=== PATIENT | female | born 1970 | race Two or more races ===

== ENCOUNTER 2017-01-14 12:38 | Emergency (ER) | payer MEDICAID, OTHER ==
[~2017-01-14] VITALS: Ht 162.6 cm; Wt 59.0 kg
--- NOTE | 2017-01-14 13:24 | Emergency Room Report ---
History of Present Illness General Chief Complaint: Behavioral Complaint Source: Patient (SOHAIL BARTON D.O.) Present Illness HPI Patient presents with complaints of suicidal ideations she states that she hears voices telling her to kill her self Denies any trauma patient reports that she has multiple diagnoses including severe depression, paranoia, schizophrenia Patient does not know her medications Reports taking her medication yesterday and does not have any with her otherwise Patient reports medications do not help She states that she been to multiple psychiatric facilities Last one was approximately 2 months ago (SOHAIL BARTON D.O.) Allergies: Coded Allergies: No Known Allergies (Unverified , 01/14/17) Patient History Past Medical History: see triage record Pertinent Family History: none Now: No Reviewed Nursing Documentation: PMH: Agreed, PSxH: Agreed (SOHAIL BARTON D.O.) Nursing Documentation-PMH Hx Cardiac Problems: No Hx Hypertension: No Hx Pacemaker: No Hx Asthma: No Hx COPD: No Hx Diabetes: No Hx Cancer: No Hx Gastrointestinal Problems: No Hx Dialysis: No History Of Psychiatric Problem: Yes - schizo,bi-polar Hx Neurological Problems: No Hx Cerebrovascular Accident: No Hx Seizures: No (SOHAIL BARTON D.O.) Review of Systems All Other Systems: negative except mentioned in HPI (SOHAIL BARTON D.O.) Physical Exam Vital Signs Date Time Temp Pulse Resp B/P Pulse Ox O2 Delivery O2 Flow Rate FiO2 01/14/17 12:33 98.1 98 16 130/80 99 Room Air Sp02 EP Interpretation: reviewed, normal General Appearance: no apparent distress - However mildly disheveled Head: normocephalic, atraumatic Eyes: bilateral eye EOMI, bilateral eye PERRL ENT: hearing grossly normal, normal pharynx, TMs + canals normal, uvula midline Neck: full range of motion, supple, no meningismus, no bony tend Respiratory: lungs clear, normal breath sounds, no rhonchi, no respiratory distress, no retraction, no accessory muscle use Cardiovascular #1: normal peripheral pulses, regular rate, rhythm, no edema, no gallop, no JVD, no murmur Gastrointestinal: normal bowel sounds, non tender, soft, no mass, no organomegaly, non-distended, no guarding, no hernia, no pulsatile mass, no rebound Genitourinary: no CVA tenderness Musculoskeletal: back normal Neurologic: oriented x3, responsive, thermal engineer III-XII nml as tested, motor strength/ tone normal, sensory intact Psychiatric: other - Reports auditory hallucinations, reports sensation of wanting to hurt herself Skin: no rash - however mildly disheveled, warm/dry, palpation normal Lymphatic: normal inspection, no adenopathy (SOHAIL BARTON D.O.) Medical Decision Making Diagnostic Impression: Primary Impression: Substance abuse Additional Impression: Depression Qualified Codes: F32.9 - Major depressive disorder, single episode, unspecified ER Course Patient was further medically cleared and at this time having psychiatric evaluation Please refer to Dr. blanco dictation for the note at this time she has psychiatrically cleared the patient as well does not feel the patient has a harm to herself patient was provided with outpatient resource at this time stable for discharge Labs Test 01/14/17 13:22 01/14/17 13:41 White Blood Count 10.0 K/UL (4.8-10.8) Red Blood Count 4.46 M/UL (4.20-5.40) Hemoglobin 14.7 G/DL (12.0-16.0) Hematocrit 41.2 % (37.0-47.0) Mean Corpuscular Volume 93 FL (80-99) Mean Corpuscular Hemoglobin 33.1 PG (27.0-31.0) Mean Corpuscular Hemoglobin Concent 35.7 G/DL (32.0-36.0) Red Cell Distribution Width 11.0 % (11.6-14.8) Platelet Count 430 K/UL (150-450) Mean Platelet Volume 6.3 FL (6.5-10.1) Neutrophils (%) (Auto) 54.7 % (45.0-75.0) Lymphocytes (%) (Auto) 32.6 % (20.0-45.0) Monocytes (%) (Auto) 8.2 % (1.0-10.0) Eosinophils (%) (Auto) 3.0 % (0.0-3.0) Basophils (%) (Auto) 1.5 % (0.0-2.0) Sodium Level 138 mEQ/L (135-145) Potassium Level 2.9 mEQ/L (3.4-4.9) Chloride Level 96 mEQ/L (98-107) Carbon Dioxide Level 20 mEQ/L (20-30) Anion Gap 22 (5-15) Blood Urea Nitrogen 6 mg/dL (7-23) Creatinine 0.8 mg/dL (0.5-0.9) Estimat Glomerular Filtration Rate > 60 mL/min (>60) Glucose Level 128 mg/dL (74-106) Calcium Level 9.8 mg/dL (8.6-10.2) Total Bilirubin 0.8 mg/dL (0.0-1.2) Aspartate Amino Transf (AST/SGOT) 55 U/L (5-40) Alanine Aminotransferase (ALT/SGPT) 37 U/L (3-33) Alkaline Phosphatase 96 U/L (35-104) Total Protein 8.2 g/dL (6.6-8.7) Albumin 4.6 g/dL (3.5-5.2) Globulin 3.6 g/dL Albumin/Globulin Ratio 1.2 (1.0-2.7) Salicylates Level < 1 mg/dL (10-30) Acetaminophen Level < 10 ug/mL (10-30) Serum Alcohol 18 mg/dL Urine HCG, Qualitative Negative Urine Opiates Screen Negative (NEGATIVE) Urine Barbiturates Screen Negative (NEGATIVE) Phencyclidine (PCP) Screen Negative (NEGATIVE) Urine Amphetamines Screen Positive (NEGATIVE) Urine Benzodiazepines Screen Negative (NEGATIVE) Urine Cocaine Screen Negative (NEGATIVE) Urine Marijuana (THC) Screen Positive (NEGATIVE) (SOHAIL BARTON.Cristina) ER Course The patient was evaluated by Dr. Grover. The patient voices suicidal ideation but thought he feels the patient is not suicidal at this time. The patient states that it she will seek help. I discussed the date 12-step program and Odalys Mancia could provide the patient. The patient is stable for outpatient observation and treatment. (James Easley M.D.) Last Vital Signs Date Time Temp Pulse Resp B/P Pulse Ox O2 Delivery O2 Flow Rate FiO2 01/14/17 12:33 98.1 98 16 130/80 99 Room Air Status: improved (SOHAIL BARTON.OJanet) Last Vital Signs Date Time Temp Pulse Resp B/P Pulse Ox O2 Delivery O2 Flow Rate FiO2 01/14/17 12:33 98.1 98 16 130/80 99 Room Air Status: improved (James Easley M.D.) Disposition: HOME, SELF-CARE Condition: Improved Additional Instructions: Patient is provided with the discharge instructions notified to follow up with primary doctor in the next 2-3 days otherwise return to the er with any worsening symptoms. Please note that this report is being documented using [employer] technology. This can lead to erroneous entry secondary to incorrect interpretation by the dictating instrument. SOHAIL BARTON D.O. Jan 14, 2017 13:24 James Easley M.D. Jan 14, 2017 15:11
[2017-01-14 13:39] LABS: BASOPHILS % (AUTO) 1.5 % (0.0-2.0); LYMPHOCYTES % (AUTO) 32.6 % (20.0-45.0); MEAN CORPUSCULAR HEMOGLOBIN 33.1 PG (27.0-31.0); MEAN CORPUSCULAR HGB CONC 35.7 G/DL (32.0-36.0); MEAN CORPUSCULAR VOLUME 93 FL (80-99); MEAN PLATELET VOLUME 6.3 FL (6.5-10.1); MONOCYTES % (AUTO) 8.2 % (1.0-10.0); NEUTROPHILS % (AUTO) 54.7 % (45.0-75.0); PLATELET COUNT 430 K/UL (150-450); RED BLOOD COUNT 4.46 M/UL (4.20-5.40)
[2017-01-14 13:47] LABS: ACETAMINOPHEN < 10 ug/mL (10-30); ALANINE AMINOTRANSFERASE 37 U/L (3-33); ALBUMIN/GLOBULIN RATIO 1.2 (1.0-2.7); ALCOHOL 18 mg/dL; ANION GAP 22 (5-15); ASPARTATE AMINO TRANSFERASE 55 U/L (5-40); CALCIUM 9.8 mg/dL (8.6-10.2); CARBON DIOXIDE 20 mEQ/L (20-30); CHLORIDE 96 mEQ/L (98-107); CREATININE 0.8 mg/dL (0.5-0.9); GLOMERULAR FILTRATION RATE > 60 mL/min (>60); HEMOLYSIS 7; POTASSIUM 2.9 mEQ/L (3.4-4.9); SODIUM 138 mEQ/L (135-145); TOTAL PROTEIN 8.2 g/dL (6.6-8.7)
[2017-01-14 15:45] VITALS: BP 130/80
--- NOTE | 2017-01-15 03:08 | Consultation ---
DATE OF CONSULTATION: HISTORY: The patient is a 46-year-old female with mixed racial, who has been admitted to the hospital and complaining of suicidal ideation with hearing voices. During the evaluation, the patient was irritable, angry, when I asked in regards to suicidal ideation, elaborate on that. She stated "you are doctor and you need to figure it out ". When I ask her about medication, the patient replied in the records you should be having access to it. When I asked her when was her last hospitalization or who is her psychiatrist, the patient became very angry and stated this evaluated is talking to her, she is a drug addict, which she is "crazy". She was unable to provide any symptoms when I asked her what symptoms she is having beside hearing voices and having suicidal thoughts. She stated that she is on relief and she is receiving $200 per month and currently she is homeless and she does not have any place to go. The patient during the evaluation was eating salamis, cheese and bread. She also has significant amount of food under her pillow and she endorsed a future oriented thought process. She also was asking about placement after discharge. PAST PSYCHIATRIC HISTORY: She was not able to provide any past psychiatric history or what hospitalization she has been. She stated that she has had several psychiatric visits. She denied any suicidal attempt in the past. PAST MEDICAL HISTORY: None known. ALLERGIES: No known drug allergies. SUBSTANCE ABUSE HISTORY: She denied any history of drug use, however, stated that she has been using alcohol. However, her urine toxicology came back positive for amphetamines as well as marijuana. MENTAL STATUS EXAMINATION: The patient is alert and oriented x4. Mood was irritable and angry. Affect was , congruent with mood and appropriate. Thought process was linear and goal oriented. Thought content, positive for suicidal ideation. No homicidal ideation. No delusions. The patient did not endorse any auditory hallucinations at the time of evaluations. ASSESSMENT: AXIS I Methamphetamine as well as marijuana abuse, alcohol abuse versus dependence. AXIS II Deferred. AXIS III As above. AXIS IV Low. AXIS V Global assessment of functioning is 60-70. PLAN: The patient was discharged with follow plan with a 12-step program. She was also referred to Amanda Andrade. At the time of evaluation, the patient is not in any danger to self or others. Not gravely disabled. She will be discharged with follow plan with a psychiatric if needed. Even though, the patient states that she is suicidal, I do not believe that at this time the patient is suicidal. She does not have history of suicide attempt in the past and does not have any indication that she is going to attempt suicide. Gil Nguyen M.D. DR: TASHI JOB#: [id number] CC:
== END 2017-01-14 15:47 | disposition home or self-care (01) ==
LOC: EDBD 12:38 → EMR 14:37
DX: F19.10 Other psychoactive substance abuse, uncomplicated (principal); F20.9 Schizophrenia, unspecified; F31.9 Bipolar disorder, unspecified
CPT/HCPCS: 36415; 80053; 80300; 80329; 81025; 85025; 99282